=== PATIENT | female | born 1995 | race Caucasian/White ===

== ENCOUNTER 2018-08-20 17:05 | Emergency (ER) | payer OTHER ==
[2018-08-20 18:04] LABS: #Basophils 0.1 thou/uL (0.0-0.2); #Eosinphils 0.1 thou/uL (0.0-0.7); #Lymphocytes 1.5 thou/uL (1.20-3.40); #Monocytes 0.5 thou/uL (0.11-0.59); #Neutrophils 7.6 thou/uL (1.40-6.50); %Basophils 0.6 % (0.0-1.0); %Eosinophils 0.9 % (0.0-10.0); %Monocytes 5.2 % (0.0-10.0); %Neutrophils 78.2 % (42.0-75.0); Hemoglobin 15.1 g/dL (12.0-16.0); Mean Corpuscular HGB CONC 34.5 g/dL (32.0-36.0); Mean Corpuscular Hemoglobin 29.9 pg (27.0-31.0); Mean Corpuscular Volume 86.7 fL (78.0-98.0); Mean Platelet Volume 8.9 fL (7.4-10.4); Platelet Count 212 thou/uL (130-400); RBC Distribution Width 11.4 % (11.5-14.5); Red Blood Cell (RBC) Count 5.05 mill/uL (4.20-5.40); White Blood Cell (WBC) Count 9.7 thou/uL (4.8-10.8)
[2018-08-20 18:28] LABS: ALT (SGPT) 25 U/L (8-55); AST (SGOT) 15 U/L (5-34); Albumin 4.1 g/dL (3.5-5.0); Alkaline Phosphatase 62 U/L (40-150); Anion Gap 16 mmol/L (10-20); BUN (Urea Nitrogen) 9 mg/dL (7.0-18.7); Bilirubin, Total 0.8 mg/dL (0.2-1.2); Calc. Creatinine Clearance 0 mL/min (70-130); Calcium 9.5 mg/dL (7.8-10.44); Carbon Dioxide 19 mmol/L (22-29); Chloride 104 mmol/L (98-107); Estimated GFR-MDRD Greater than 90; Globulin 2.9 g/dL (2.4-3.5); Glucose 81 mg/dL (70-105); Potassium 3.8 mmol/L (3.5-5.1); Sodium 135 mmol/L (136-145)
[2018-08-20] MEDS ORDERED: diphenhydrAMINE 50 MG/ML VIAL ONE (18:31)
[2018-08-20] MEDS ORDERED: Metoclopramide HCl 10 MG/2 ML VIAL ONE (18:31)
== END 2018-08-20 20:15 | disposition home or self-care (01) ==
LOC: ERS 17:05
DX: O21.0 Mild hyperemesis gravidarum (principal); Z3A.09 9 weeks gestation of pregnancy
CPT/HCPCS: 80053; 84702; 85025; 96361; 96374; 96375; J1200; J2765

== ENCOUNTER 2018-08-22 16:07 | Inpatient (IN) | payer OTHER ==
[2018-08-22] MEDS ORDERED: Promethazine HCl 25 MG/ML VIAL IM PRN (18:58)
[2018-08-22] MEDS ORDERED: Multivitamins, Adult 10 ML, Thiamine HCl 100 MG, Folic Acid 1 MG in Dextrose 5 %-0.45 %... IV SCH (20:00)
[2018-08-22] MEDS: Ondansetron PF 4 MG/2 ML Vial IVP SCH (20:19)
[2018-08-22] MEDS: Famotidine/PF 20 mg/2ml Vial SLOW IVP SCH (20:19)
[2018-08-22] MEDS: Metoclopramide HCl 10 MG/2 ML VIAL IVP SCH (20:19)
[2018-08-22 20:31] LABS: ALT (SGPT) 28 U/L (8-55); AST (SGOT) 24 U/L (5-34); Albumin 4.6 g/dL (3.5-5.0); Alkaline Phosphatase 71 U/L (40-150); Anion Gap 18 mmol/L (10-20); BUN (Urea Nitrogen) 11 mg/dL (7.0-18.7); Bilirubin, Total 1.5 mg/dL (0.2-1.2); Calc. Creatinine Clearance 176 mL/min (70-130); Calcium 9.8 mg/dL (7.8-10.44); Carbon Dioxide 18 mmol/L (22-29); Chloride 102 mmol/L (98-107); Estimated GFR-MDRD Greater than 90; Globulin 3.3 g/dL (2.4-3.5); Glucose 63 mg/dL (70-105); Lipase 22 U/L (8-78); Potassium 3.8 mmol/L (3.5-5.1); Protein, Total 7.9 g/dL (6.0-8.3); Sodium 134 mmol/L (136-145)
[2018-08-22 20:48] LABS: Free T4 (Free Thyroxine) 1.17 ng/dL (0.70-1.48); Thyroid Stimulating Hormone 0.2245 uIU/mL (0.35-4.94)
[2018-08-22 22:52] LABS: Bilirubin Small (Negative); Blood, Urine Negative (Negative); Clarity CLOUDY (Clear); Glucose, Urine (Dipstick) Negative (Negative); Leukocyte Negative (Negative); Nitrite Negative (Negative); Protein, Urine (Dipstick) Trace mg/dL (Neg-Trace); Specific Gravity, Urine 1.031 (1.002-1.036); pH, Urine 5.5 (5.0-9.0)
[2018-08-22 22:54] LABS: Bacteria/HPF 1+ HPF (None Seen); Hyaline Casts/LPF 4-6 HYALINE CAST LPF (0-3 Hyaline); Pathc Cast-AUWi Flag 1.22 (0-2.49); RBC/HPF 0-3 HPF (0-3); WBC/HPF 0-3 HPF (0-3)
--- NOTE | 2018-08-22 23:27 | PDOC.FPRHP ---
- History of Present Illness Chief Complaint: Nausea and vomiting History of Present Illness: Patient was seen in ER at the instruction of her primary provider for Nausea and vomiting on Saturday. She was given fluids, benadryl, reglan, and sent home in good condition. She reports feeling good when she left, but by the time she made it to [place] at [employer] she started vomiting again. She worked hourly shift then then when she woke up this afternoon at 1400, she vomited 7 times prior to 1600, at which time she called the triage nurse at [facility]. She is unable to hold down even sips of water. Her vomit is yellow and smith her throat with acid. She had not urinated all day. She back is hurting and she also has a headache. - Allergies/Adverse Reactions Allergies Allergy/AdvReac Type Severity Reaction Status Date / Time amitriptyline Allergy Verified 08/22/18 18:53 - History PSHx: lives with , works hourly shift at [employer] Social: denies - Review of Systems Gastrointestinal: reports: nausea, vomiting Musculoskeletal: reports: pain (in the back) Neurological: reports: other (headache) - Vital signs BP: [134/93] HR: [87] RR: [18] Tmax: [97.9] Pox: [99]% on [RA] Wt: [198] - Physical Exam Constitutional: NAD, awake, alert and oriented HEENT: normocephalic and atraumatic Heart: RRR, normal S1/S2, pulses present Lungs: CTAB, no respiratory distress Abdomen: soft, bowel sounds present, no masses/distention, other (Neg CVA tenderness) Musculoskeletal: normal tone, ROM grossly normal Neurological: no focal deficit, CN II-XII intact, normal sensation Skin: no rash/lesions Psychiatric: normal mood and affect FMR H&P: Results - Labs Result Diagrams: 08/22/18 20:02 Lab results: Sodium 134 mmol/L (136-145) L 08/22/18 20:02 Potassium 3.8 mmol/L (3.5-5.1) 08/22/18 20:02 Chloride 102 mmol/L (98-107) 08/22/18 20:02 Carbon Dioxide 18 mmol/L (22-29) L 08/22/18 20:02 BUN 11 mg/dL (7.0-18.7) 08/22/18 20:02 Creatinine 0.70 mg/dL (0.6-1.1) 08/22/18 20:02 Glucose 63 mg/dL (70-105) L 08/22/18 20:02 Calcium 9.8 mg/dL (7.8-10.44) 08/22/18 20:02 Total Bilirubin 1.5 mg/dL (0.2-1.2) H 08/22/18 20:02 AST 24 U/L (5-34) 08/22/18 20:02 ALT 28 U/L (8-55) 08/22/18 20:02 Alkaline Phosphatase 71 U/L (40-150) 08/22/18 20:02 Serum Total Protein 7.9 g/dL (6.0-8.3) 08/22/18 20:02 Albumin 4.6 g/dL (3.5-5.0) 08/22/18 20:02 Lipase 22 U/L (8-78) 08/22/18 20:02 Urine Ketones > or equal to 80 mg/dL (Negative) H 08/22/18 22:20 Urine Blood Negative (Negative) 08/22/18 22:20 Urine Nitrite Negative (Negative) 08/22/18 22:20 Ur Leukocyte Esterase Negative (Negative) 08/22/18 22:20 Urine RBC 0-3 HPF (0-3) 08/22/18 22:20 Urine WBC 0-3 HPF (0-3) 08/22/18 22:20 Ur Squamous Epith Cells 11-20 HPF (0-3) H 08/22/18 22:20 Urine Bacteria 1+ HPF (None Seen) H 08/22/18 22:20 FMR H&P: A/P - Problem List (1) Hyperemesis gravidarum Current Visit: Yes Status: Acute Code(s): O21.0 - MILD HYPEREMESIS GRAVIDARUM (2) Obesity Current Visit: Yes Status: Acute Code(s): E66.9 - OBESITY, UNSPECIFIED (3) Dehydration Current Visit: Yes Status: Acute Code(s): E86.0 - DEHYDRATION (4) Ketonuria Current Visit: Yes Status: Acute Code(s): R82.4 - ACETONURIA (5) UTI (urinary tract infection) Current Visit: Yes Status: Acute (6) 10 weeks gestation of Current Visit: Yes Status: Acute Code(s): Z3A.10 - 10 WEEKS GESTATION OF - Plan Direct admission Under supervising physician Dr. Breana Rodriguez, who I have consulted with on the case NPO until no longer vomiting then will start advancing diet and do a PO challenge prior to discharge IV hydration with banana bag, then d5LR until ketone clear from UA IV / IM antiemetics Tylenol for CHEEK or back ache. Start Antibiotic for UTI, UCX sent for sensitivity. Lab to r/o pancreatitis, hyperthyroidism, and metabolic panel to ensure electrolytes are within normal limits FMR H&P: Upper Level - Plan Date/Time: 08/22/18 7503 I, [], have evaluated this patient and agree with findings/plan as outlined by intern product marketing manager resident. Pertinent changes/additions are listed here.
[2018-08-22] MEDS: Dextrose 5%-Lactated Ringers 1,000 ML IV SCH (23:48)
[2018-08-23] MEDS: Dextrose 5%-Lactated Ringers 1,000 ML IV SCH ×6 (04:08→17:18)
[2018-08-23] MEDS: Ondansetron PF 4 MG/2 ML Vial IVP SCH ×2 (04:09→12:12)
[2018-08-23 04:16] VITALS: BMI 32.9
[2018-08-23] MEDS: Acetaminophen 325 MG TAB PO PRN ×2 (08:14→15:05)
[2018-08-23] MEDS: Metoclopramide HCl 10 MG/2 ML VIAL IVP SCH (08:14)
[2018-08-23] MEDS: Nitrofurantoin Monohyd/M-Cryst 100 MG CAP PO SCH ×2 (08:14→21:39)
[2018-08-23] MEDS: Famotidine/PF 20 mg/2ml Vial SLOW IVP SCH ×2 (08:14→18:09)
[2018-08-23 14:17] LABS: Bilirubin Negative (Negative); Blood, Urine Negative (Negative); Clarity CLEAR (Clear); Glucose, Urine (Dipstick) Negative (Negative); Leukocyte Negative (Negative); Nitrite Negative (Negative); Protein, Urine (Dipstick) Negative (Neg-Trace); Specific Gravity, Urine 1.013 (1.002-1.036)
--- NOTE | 2018-08-23 21:39 | PDOC.PP ---
Post Progress Note Subjective: Patient is feeling better. has not vomited since she has had IV medications. She was able to eat some potato soup and juice. PO intake tolerated: yes Flatus: yes Ambulation: yes Vital Signs (12 hours) Temp Pulse Resp BP Pulse Ox 08/23/18 20:00 98.5 F 80 20 109/66 99 08/23/18 14:55 98.4 F 86 20 97/53 L Weight Admit Weight 198 lb Weight 198 lb - Physical Examination General: NAD Cardiovascular: no m/r/g, RRR Respiratory: clear to auscultation bilaterally, non-labored breathing Abdominal: + bowel sounds Extremities: negative homans (B) Skin: no rash Neurological: no gross focal deficits Psychiatric: A&Ox3, normal affect Result Diagrams: 08/22/18 20:02 (1) Hyperemesis gravidarum Code(s): O21.0 - MILD HYPEREMESIS GRAVIDARUM Status: Acute (2) Obesity Code(s): E66.9 - OBESITY, UNSPECIFIED Status: Acute (3) Dehydration Code(s): E86.0 - DEHYDRATION Status: Acute (4) Ketonuria Code(s): R82.4 - ACETONURIA Status: Acute (5) UTI (urinary tract infection) Status: Acute (6) 10 weeks gestation of Code(s): Z3A.10 - 10 WEEKS GESTATION OF Status: Acute - Assessment/Plan A: at 10wks gestation with hyperemisis and improved status. Ketones in urine have resolved P: continue IV hydration at 125ml per hour. Transition to PO antiemetic. Advance diet as tolerated. Evaluate for discharge tomorrow
[2018-08-23] MEDS ORDERED: Metoclopramide HCl 10 MG TAB PO SCH (22:00)
[2018-08-24] MEDS: Metoclopramide HCl 10 MG/2 ML VIAL IVP SCH ×2 (00:51→20:30)
[2018-08-24] MEDS: Dextrose 5%-Lactated Ringers 1,000 ML IV SCH ×3 (01:16→15:44)
[2018-08-24] MEDS: Nitrofurantoin Monohyd/M-Cryst 100 MG CAP PO SCH ×2 (08:21→20:29)
[2018-08-24] MEDS: Metoclopramide HCl 10 MG TAB PO SCH ×2 (08:21→11:36)
[2018-08-24] MEDS: Ondansetron ODT 4 MG TAB PO PRN ×2 (08:21→11:36)
[2018-08-24] MEDS ORDERED: Famotidine 20 MG TAB PO SCH (09:00)
--- NOTE | 2018-08-24 10:50 | ULT ---
PELVIC ULTRASOUND WITH SCOTT SCALE AND COLOR FLOW AND SPECTRAL DOPPLER: HISTORY: Evaluation of . FINDINGS: A single live intrauterine gestation is seen with measurements corresponding to an estimated gestatio nal age of 9 weeks 6 days and KEYUR at 03/23/2019. The crown-rump length measures 3.38 cm, gestational sac diameter 4.0 cm, and yolk diameter is 0.33 cm. The heart rate measures 171 b.p.m. No figueroa bchorionic hemorrhage is seen. The right ovary is visualized and normal and demonstrates flow. The left ovary is not visualized. N o free fluid is seen in the cul-de-sac. IMPRESSION: Single live intrauterine of 9 weeks 6 days estimated gestational age and estimated date of delivery at 03/23/2019. POS: JAJA
[2018-08-24] MEDS: Ondansetron PF 4 MG/2 ML Vial IVP SCH ×2 (15:39→22:34)
[2018-08-24 15:57] LABS: ALT (SGPT) 22 U/L (8-55); AST (SGOT) 13 U/L (5-34); Albumin 3.5 g/dL (3.5-5.0); Alkaline Phosphatase 57 U/L (40-150); Anion Gap 11 mmol/L (10-20); BUN (Urea Nitrogen) Less than 4 mg/dL (7.0-18.7); Bilirubin, Total 0.4 mg/dL (0.2-1.2); Calc. Creatinine Clearance 202 mL/min (70-130); Carbon Dioxide 22 mmol/L (22-29); Chloride 107 mmol/L (98-107); Estimated GFR-MDRD Greater than 90; Globulin 2.5 g/dL (2.4-3.5); Glucose 81 mg/dL (70-105); Potassium 3.4 mmol/L (3.5-5.1); Sodium 137 mmol/L (136-145)
[2018-08-24] MEDS: Famotidine/PF 20 mg/2ml Vial SLOW IVP SCH (20:23)
[2018-08-25] MEDS: Dextrose 5%-Lactated Ringers 1,000 ML IV SCH (00:28)
[2018-08-25] MEDS: Ondansetron PF 4 MG/2 ML Vial IVP SCH ×2 (06:02→13:47)
--- NOTE | 2018-08-25 06:45 | PDOC.EVN ---
Event Note - Event Note Event Note: S: Rene has not vomited since starting back on clear fluids and IV antiemetics. She was able to sleep. she is getting up to use the restroom every five minutes as well as able to walk around the hallway a few times per day. She denies any pain in the back of her calf, SOB. Is still having occasional bouts of nausea. O: Selected Entries 08/25/18 08:07 Temperature 98.2 F Pulse Rate 77 Blood Pressure 109/61 [Semi-Fowlers] Respiratory 20 Rate O2 Sat by Pulse 99 Oximetry Laboratory Tests 08/24/18 14:58 Sodium 137 Potassium 3.4 L Chloride 107 Carbon Dioxide 22 Anion Gap 11 BUN Less than 4 L Creatinine 0.61 Estimated GFR (MDRD) Greater than 90 Glucose 81 Calcium 9.0 Total Bilirubin 0.4 AST 13 ALT 22 Alkaline Phosphatase 57 Serum Total Protein 6.0 Albumin 3.5 Globulin 2.5 Albumin/Globulin Ratio 1.4 constitutional: sleeping Lungs: non labored breathing ABD: soft, non distended A: at 10weeks gestation with hyperemesisi P: I counsulted with with Dr. Paul and discussed using [facility] protocol for hyperemesis. IV fluids changed to NS with potassium 20meq. Start 10mg predinsone QID. clear fluid diet and Will advance diet as tolerated
[2018-08-25] MEDS: Famotidine/PF 20 mg/2ml Vial SLOW IVP SCH (08:29)
[2018-08-25] MEDS: Metoclopramide HCl 10 MG/2 ML VIAL IVP SCH (08:29)
[2018-08-25] MEDS: 1/2 NS w/KCL 20 mEq 1,000 ML IV SCH ×2 (08:59→20:07)
[2018-08-25] MEDS: Nitrofurantoin Monohyd/M-Cryst 100 MG CAP PO SCH ×2 (08:59→21:10)
[2018-08-25] MEDS ORDERED: predniSONE 20 MG TAB PO SCH (09:00)
[2018-08-25] MEDS ORDERED: prednisoLONE 10 MG ODT TAB PO SCH (09:00)
[2018-08-25] MEDS: predniSONE 20 MG TAB PO SCH ×3 (12:25→21:10)
[2018-08-25] MEDS ORDERED: Ondansetron ORAL SOLN. 4 MG/5 ML UDCUP PO PRN ×2 (14:27→19:05)
[2018-08-25] MEDS ORDERED: SODIUM CHLORIDE IV SCH (14:30)
[2018-08-25] MEDS ORDERED: MULTIVITAMINS IV SCH (14:30)
[2018-08-25] MEDS ORDERED: Multivitamins, Adult 10 ML in Sodium Chloride 0.9% 500 ML IV SCH (14:45)
[2018-08-25 15:10] LABS: ALT (SGPT) 22 U/L (8-55); AST (SGOT) 15 U/L (5-34); Albumin 3.6 g/dL (3.5-5.0); Alkaline Phosphatase 60 U/L (40-150); Anion Gap 10 mmol/L (10-20); BUN (Urea Nitrogen) Less than 4 mg/dL (7.0-18.7); Bilirubin, Total 0.6 mg/dL (0.2-1.2); Calc. Creatinine Clearance 192 mL/min (70-130); Calcium 9.1 mg/dL (7.8-10.44); Carbon Dioxide 22 mmol/L (22-29); Chloride 107 mmol/L (98-107); Estimated GFR-MDRD Greater than 90; Globulin 2.3 g/dL (2.4-3.5); Glucose 93 mg/dL (70-105); Potassium 3.7 mmol/L (3.5-5.1); Protein, Total 5.9 g/dL (6.0-8.3); Sodium 135 mmol/L (136-145)
[2018-08-25] MEDS ORDERED: Metoclopramide 10 MG/10 ML UDCUP PO SCH (17:00)
[2018-08-25] MEDS: Metoclopramide HCl 10 MG TAB PO SCH ×2 (17:21→21:10)
[2018-08-25] MEDS ORDERED: Enoxaparin Sodium 40 MG/0.4 ML SYRINGE SC SCH (21:00)
[2018-08-25] MEDS: Famotidine 20 MG TAB PO SCH (21:10)
[2018-08-26] MEDS: Famotidine 20 MG TAB PO SCH (07:47)
[2018-08-26] MEDS: Metoclopramide HCl 10 MG TAB PO SCH ×2 (07:47→11:28)
[2018-08-26] MEDS: predniSONE 20 MG TAB PO SCH (08:01)
[2018-08-26] MEDS ORDERED: predniSONE 5 MG TAB PO SCH (09:00)
[2018-08-26] MEDS: Nitrofurantoin Monohyd/M-Cryst 100 MG CAP PO SCH (09:22)
[2018-08-26 11:09] VITALS: BP 114/61; TEMP 98.5
== END 2018-08-26 15:25 | disposition home or self-care (01) | DRG 832 ==
LOC: 3SW 17:50
PROVIDERS: ADMIT Student in an Organized Health Care Education/Training Program; ATTEND Student in an Organized Health Care Education/Training Program
DX: O21.1 Hyperemesis gravidarum with metabolic disturbance (principal); O23.41 Unspecified infection of urinary tract in pregnancy, first trimester; E66.9 Obesity, unspecified; O99.211 Obesity complicating pregnancy, first trimester; Z3A.10 10 weeks gestation of pregnancy
CPT/HCPCS: 36415; 76856; 80053; 81001; 81003; 82150; 83690; 84439; 84443; 84702; 85025; 87086; 93976; 96361; 96374; 96375; J1200; J1650; J2405; J2550; J2765; J3411; J3480; J7042; J7050; J7510; J7512; J8597; Q0162; S0028

== ENCOUNTER 2018-09-27 21:32 | Emergency (ER) | payer OTHER ==
[2018-09-27 22:20] LABS: #Basophils 0.1 thou/uL (0.0-0.2); #Eosinphils 0.2 thou/uL (0.0-0.7); #Lymphocytes 2.5 thou/uL (1.20-3.40); #Monocytes 0.9 thou/uL (0.11-0.59); #Neutrophils 8.6 thou/uL (1.40-6.50); %Basophils 0.5 % (0.0-1.0); %Lymphocytes 20.5 % (21.0-51.0); %Monocytes 7.1 % (0.0-10.0); Hemoglobin 13.7 g/dL (12.0-16.0); Mean Corpuscular HGB CONC 33.5 g/dL (32.0-36.0); Mean Corpuscular Volume 86.4 fL (78.0-98.0); Mean Platelet Volume 8.7 fL (7.4-10.4); Platelet Count 269 thou/uL (130-400); RBC Distribution Width 11.7 % (11.5-14.5); Red Blood Cell (RBC) Count 4.74 mill/uL (4.20-5.40); White Blood Cell (WBC) Count 12.2 thou/uL (4.8-10.8)
[2018-09-27 22:29] LABS: Bacteria/HPF None Seen HPF (None Seen); Bilirubin 1+ (Negative); Blood, Urine Negative (Negative); Clarity Clear (Clear); Glucose, Urine (Dipstick) Normal (Negative); Leukocyte Negative Leu/uL (Negative); Nitrite Negative (Negative); Protein, Urine (Dipstick) 50 mg/dL (Neg-Trace); WBC/HPF 0-3 HPF (0-3)
[2018-09-27 22:30] LABS: Pregnancy Test - Urine (BHCG) POSITIVE (Negative); Pregu Control Background? CLEAR/WHITE (CLR/WHITE); Pregu Control Bar Appear? YES (CONTROL BAR); Specific Gravity 1.027 (1.002-1.036)
[2018-09-27] MEDS ORDERED: diphenhydrAMINE 50 MG/ML VIAL ONE (22:35)
[2018-09-27] MEDS ORDERED: Metoclopramide HCl 10 MG/2 ML VIAL ONE (22:35)
[2018-09-27 23:36] LABS: Albumin 3.3 g/dL (3.5-5.0)
[2018-09-27 23:37] LABS: Chloride 105 mmol/L (98-107); Potassium 3.9 mmol/L (3.5-5.1); Sodium 133 mmol/L (136-145)
[2018-09-27 23:39] LABS: Glucose 60 mg/dL (70-105); Protein, Total 6.3 g/dL (6.0-8.3)
[2018-09-27 23:40] LABS: Anion Gap 18 mmol/L (10-20); Carbon Dioxide 14 mmol/L (22-29)
[2018-09-27 23:41] LABS: Alkaline Phosphatase 87 U/L (40-150)
[2018-09-27 23:42] LABS: Calc. Creatinine Clearance 0 mL/min (70-130); Estimated GFR-MDRD Greater than 90
[2018-09-27 23:43] LABS: BUN (Urea Nitrogen) 6 mg/dL (7.0-18.7)
[2018-09-27 23:44] LABS: ALT (SGPT) 29 U/L (8-55); AST (SGOT) 24 U/L (5-34)
[2018-09-27] MEDS ORDERED: Dextrose 5% in Water 1,000 ML IV SCH (23:45)
== END 2018-09-28 01:31 | disposition home or self-care (01) ==
LOC: ERS 21:32
DX: O21.9 Vomiting of pregnancy, unspecified (principal); O99.282 Endocrine, nutritional and metabolic diseases complicating pregnancy, second trimester; E87.6 Hypokalemia; O99.512 Diseases of the respiratory system complicating pregnancy, second trimester; J45.909 Unspecified asthma, uncomplicated; O99.342 Other mental disorders complicating pregnancy, second trimester; F41.9 Anxiety disorder, unspecified; F32.9 Major depressive disorder, single episode, unspecified; Z79.899 Other long term (current) drug therapy; Z3A.15 15 weeks gestation of pregnancy
CPT/HCPCS: 80053; 81003; 81015; 81025; 84702; 85025; 87086; 96361; 96365; 96366; 96375; J1200; J2765

== ENCOUNTER 2018-10-03 04:26 | Emergency (ER) | payer OTHER ==
[2018-10-03] MEDS ORDERED: Metoclopramide HCl 10 MG/2 ML VIAL ONE (05:30)
[2018-10-03] MEDS ORDERED: Famotidine/PF 20 mg/2ml Vial ONE (05:30)
[2018-10-03 05:42] LABS: #Eosinphils 0.1 thou/uL (0.0-0.7); #Monocytes 0.6 thou/uL (0.11-0.59); #Neutrophils 8.1 thou/uL (1.40-6.50); %Basophils 0.4 % (0.0-1.0); %Eosinophils 1.1 % (0.0-10.0); %Lymphocytes 18.4 % (21.0-51.0); %Monocytes 5.4 % (0.0-10.0); %Neutrophils 74.7 % (42.0-75.0); Hemoglobin 13.9 g/dL (12.0-16.0); Mean Corpuscular HGB CONC 35.1 g/dL (32.0-36.0); Mean Corpuscular Volume 85.3 fL (78.0-98.0); Mean Platelet Volume 9.4 fL (7.4-10.4); Platelet Count 253 thou/uL (130-400); RBC Distribution Width 11.7 % (11.5-14.5); Red Blood Cell (RBC) Count 4.64 mill/uL (4.20-5.40); White Blood Cell (WBC) Count 10.8 thou/uL (4.8-10.8)
[2018-10-03 06:05] LABS: ALT (SGPT) 37 U/L (8-55); AST (SGOT) 30 U/L (5-34); Albumin 3.9 g/dL (3.5-5.0); Alkaline Phosphatase 96 U/L (40-150); Anion Gap 17 mmol/L (10-20); BUN (Urea Nitrogen) 8 mg/dL (7.0-18.7); Bilirubin, Total 1.3 mg/dL (0.2-1.2); Calc. Creatinine Clearance 0 mL/min (70-130); Calcium 9.8 mg/dL (7.8-10.44); Carbon Dioxide 19 mmol/L (22-29); Chloride 102 mmol/L (98-107); Estimated GFR-MDRD Greater than 90; Globulin 3.6 g/dL (2.4-3.5); Glucose 72 mg/dL (70-105); Lipase 26 U/L (8-78); Protein, Total 7.5 g/dL (6.0-8.3); Sodium 134 mmol/L (136-145)
[2018-10-03 07:15] LABS: Bilirubin 1+ (Negative); Blood, Urine Negative (Negative); Clarity Turbid (Clear); Glucose, Urine (Dipstick) Normal (Negative); Leukocyte Negative Leu/uL (Negative); Mucous/LPF 1+ LPF (<2+); Nitrite Negative (Negative); Protein, Urine (Dipstick) 200 mg/dL (Neg-Trace); Transitional Epithelial 0-3 HPF (None Seen); Urobilinogen Greater than 12 mg/dL (Less than 2)
[2018-10-03 07:26] LABS: Bacteria/HPF 2+ HPF (None Seen)
[2018-10-03] MEDS ORDERED: Pantoprazole 40 MG VIAL ONE (08:35)
== END 2018-10-03 09:00 | disposition home or self-care (01) ==
LOC: ERS 04:26
DX: O21.0 Mild hyperemesis gravidarum (principal); O99.512 Diseases of the respiratory system complicating pregnancy, second trimester; J45.909 Unspecified asthma, uncomplicated; O99.342 Other mental disorders complicating pregnancy, second trimester; F41.9 Anxiety disorder, unspecified; F32.9 Major depressive disorder, single episode, unspecified; Z3A.16 16 weeks gestation of pregnancy; Z79.899 Other long term (current) drug therapy
CPT/HCPCS: 36416; 80053; 81003; 81015; 83690; 85025; 96365; 96375; C9113; J2765; S0028

== ENCOUNTER 2019-02-06 12:14 | Day surgery (SDC) | payer OTHER ==
[2019-02-06 12:40] VITALS: BMI 33.3
[2019-02-06] MEDS ORDERED: FLU VACC QS2019-20(6MOS UP)/PF 60 MCG/0.5 ML SYRINGE IM ONE (12:45)
[2019-02-06] MEDS ORDERED: hydrALAZINE 20 MG/ML VIAL SLOW IVP PRN (14:09)
[2019-02-06 14:44] LABS: Bacteria/HPF None Seen HPF (None Seen); Bilirubin Negative (Negative); Blood, Urine Negative (Negative); Clarity Clear (Clear); Glucose, Urine (Dipstick) Normal (Negative); Leukocyte Negative Leu/uL (Negative); Nitrite Negative (Negative); Protein, Urine (Dipstick) 30 mg/dL (Neg-Trace); Urobilinogen Normal mg/dL (Less than 2); WBC/HPF 0-3 HPF (0-3)
--- NOTE | 2019-02-09 08:31 | PRG ---
DATE OF SERVICE: 02/06/2019 PRIMARY OB: . Meagan Aviles, certified nurse-piece hand. CHIEF COMPLAINT: Abdominal pain. HISTORY OF PRESENT ILLNESS: The patient is a 23-year-old G1, P0 female with an intrauterine at 34 weeks, presenting to Labor and Delivery after having uterine contractions that she reported this morning as being severe and 10 minutes apart or less. The patient at the time of evaluation reports that her contractions have diminished in intensity and frequency. She denies intercourse in the last couple of days. She denies any urinary urgency or frequency. She denies vaginal bleeding or leakage of fluid. She does report chronic prednisone use for hyperemesis gravidarum. She denies any recent illness with fever, cough, headache, chest pain, or shortness of breath. Nausea and vomiting have been under control with the prednisone. Denies diarrhea or constipation, any new rashes, hip problems, knee problems, muscle weakness, vaginal bleeding or leakage of fluid, urinary urgency or frequency. PAST MEDICAL HISTORY: She has Chiari malformation and hyperemesis gravidarum. She has asthma and also history of migraines, headaches, and seizures. Also, anxiety and depression. PAST SURGICAL HISTORY: She has had an appendectomy and mouth surgery. ALLERGIES: ALLERGIC TO PEANUTS AND AMITRIPTYLINE. SOCIAL HISTORY: Denies drug, alcohol, or tobacco use. REVIEW OF SYSTEMS: Per HPI. PHYSICAL EXAMINATION: VITAL SIGNS: Blood pressure is 117/70, heart rate of 116, respiratory rate of 14, and temperature 97.2. GENERAL: She appears to be in no acute distress. She is alert, oriented, cooperative, and pleasant to interact with. HEENT: Head is normocephalic and atraumatic. LUNGS: Clear to auscultation bilaterally. HEART: Regular rate and rhythm. ABDOMEN: Gravid and soft. EXTREMITIES: Nontender and nonedematous. PELVIC: Cervical exam is closed, thick, and high. She had a VPIII collected. DIAGNOSTIC STUDIES: heart tracing shows a fetus with a baseline in the 130s with moderate long-term variability, positive 15 x 15 accelerations. Tocometer shows some irritability with an irregular contraction pattern. They were from 5 to 10 minutes apart, though not all felt. VPIII and UA are pending. ASSESSMENT AND PLAN: The patient is a 23-year-old female with an intrauterine at 34 weeks' gestation, presenting with uterine contractions that has spontaneously been resolving. We have a VPIII and a UA pending to see if she has any infection that may be the source of her contractions. The patient has had no other evidence of labor. Fetus has a category 1 tracing and reactive NST. The patient is being discharged home given the spontaneous resolution of symptoms. She will be calling in a couple of hours for those test results. She has an appointment next week with Ms. Meagan Aviles, which we have encouraged that she keep. She has been given labor precautions. Job ID: [id number]
== END 2019-02-06 14:19 | disposition home or self-care (01) ==
LOC: L&D/OP 12:14
PROVIDERS: ATTEND Obstetrics & Gynecology
DX: O47.9 False labor, unspecified (principal); Z79.52 Long term (current) use of systemic steroids; Z79.899 Other long term (current) drug therapy; Z88.8 Allergy status to other drugs, medicaments and biological substances; Z91.010 Allergy to peanuts; Z3A.00 Weeks of gestation of pregnancy not specified
CPT/HCPCS: 81001; 87480; 87510; 87660; 99283

== ENCOUNTER 2019-02-27 01:35 | Inpatient (IN) | payer OTHER ==
[2019-02-27] MEDS ORDERED: Promethazine HCl 25 MG/ML VIAL IM PRN ×4 (10:26→17:02)
[2019-02-27] MEDS ORDERED: Mineral Oil PER 1 ML TOP PRN (10:26)
[2019-02-27] MEDS ORDERED: hydrALAZINE 20 MG/ML VIAL SLOW IVP PRN ×3 (10:26→17:02)
[2019-02-27] MEDS ORDERED: Ondansetron PF 4 MG/2 ML Vial IVP PRN ×4 (10:26→17:02)
[2019-02-27] MEDS ORDERED: Lactated Ringer's 1,000 ML IV SCH (10:30)
[2019-02-27 10:52] VITALS: BMI 35.7
[2019-02-27] MEDS ORDERED: MORPHINE 5 MG/10 ML PF VIAL ONE (11:58)
[2019-02-27] MEDS ORDERED: Fentanyl 100 MCG/2 ML VIAL ONE (11:58)
[2019-02-27 12:00] LABS: Hemoglobin 14.1 g/dL (12.0-16.0); Mean Corpuscular HGB CONC 33.1 g/dL (32.0-36.0); Mean Corpuscular Hemoglobin 27.6 pg (27.0-31.0); Mean Corpuscular Volume 83.3 fL (78.0-98.0); Mean Platelet Volume 8.9 fL (7.4-10.4); Platelet Count 244 thou/uL (130-400); RBC Distribution Width 12.9 % (11.5-14.5); White Blood Cell (WBC) Count 13.4 thou/uL (4.8-10.8)
[2019-02-27] MEDS ORDERED: Lidocaine 2% 10 ML INJ ONE (12:01)
[2019-02-27] MEDS ORDERED: ePHEDrine/0.9% NaCl/PF SYRINGE 50 mg/10 ml ONE (12:02)
[2019-02-27] MEDS ORDERED: PHENYLEPHRINE-NS 100 MCG/ML 10 ML SYRINGE ONE (12:02)
[2019-02-27] MEDS ORDERED: Ondansetron PF 4 MG/2 ML Vial ONE (12:03)
[2019-02-27] MEDS ORDERED: CEFAZOLIN 2 GM in Premix Bag 1 BAG IVPB SCH (12:30)
[2019-02-27] MEDS ORDERED: Bicitra 30 ML UDCUP PO SCH (12:30)
--- NOTE | 2019-02-27 12:32 | PDOC.LDHP ---
Labor and Delivery H&P HPI: Arrived for EVC/ PCS. Current gestational age (weeks): 37 Due date: 03/20/18 Dating criteria: last menstrual period (verified by first trimester us at 8w4day ) Grav: 1 Para: 0 Current complications: other (Hyperemesis gravidarium) Abnormal US findings: Yes (oligohydramnios 3.5 cm today) Past Medical History: SMA carrier chiari malformation? IBS Current medications: other (prednisone 40mg PO QD) Previous surgical history: appendectomy Allergies/Adverse Reactions: Allergies Allergy/AdvReac Type Severity Reaction Status Date / Time peanut Allergy Verified 02/27/19 10:52 amitriptyline AdvReac Intermediate Verified 02/27/19 10:52 Social history: none - Physical Exam Vital signs reviewed and normal: yes General: resting Lungs: nonlabored breathing Abdomen: gravid FHT: category 1 - Vaginal Exam cm dilated: 0 Effacement: 0% Station: -3 - OB Labs Blood type: B RH: positive Antibody Screen: negative HIV: negative RPR: negative HEPSAg: negative GBS: unknown Urine drug screen: negative Rubella: non-immune - Assessment L&D Assessment: scheduled primary section (ECV is not recommended due to oligohydramnios due to the) - Plan Plan: admit to L&D, to OR for section
[2019-02-27 12:39] LABS: Syphilis Antibody Nonreactive (Nonreactive); Syphilis Antibody Index 0.04 S/CO (<1.00 Non-Reactive)
[2019-02-27 12:39] LABS: HBSAg Index 0.37 S/CO (0-0.99); Hep B Surf Ag Non-Reactive S/CO (NonReactive)
[2019-02-27] MEDS ORDERED: Fentanyl 4 mcg/Bup 0.1% Cadd 100 ML ONE (12:39)
[2019-02-27] MEDS ORDERED: Oxytocin 10 UNITS/ML VIAL ONE ×4 (13:45→13:46)
[2019-02-27] MEDS: Hydrocortisone Sod Succ/PF 100 mg/2 ml Vial IVP SCH ×2 (13:52→21:02)
[2019-02-27] MEDS ORDERED: Hydrocortisone Sod Succ/PF 250 mg/2 ml Vial SLOW IVP SCH (14:00)
[2019-02-27] MEDS ORDERED: Promethazine HCl 25 MG SUPP PR PRN (14:24)
[2019-02-27] MEDS ORDERED: L&D-Morphine 4 MG/ML VIAL SLOW IVP PRN (14:24)
[2019-02-27] MEDS ORDERED: HYDROmorphone 2 MG/ML VIAL SLOW IVP PRN (14:24)
[2019-02-27] MEDS ORDERED: Naloxone HCl 0.4 mg/ml Vial IV PRN (14:24)
[2019-02-27] MEDS ORDERED: Naloxone HCl 0.4 mg/ml Vial IVP PRN ×2 (14:24)
[2019-02-27] MEDS ORDERED: diphenhydrAMINE 50 MG/ML VIAL IVP PRN (14:24)
[2019-02-27] MEDS ORDERED: Ondansetron HCl/PF 4 MG/2 ML Vial IVP PRN (14:24)
[2019-02-27] MEDS ORDERED: Meperidine HCl/PF 25 MG/ML VIAL SLOW IVP PRN (14:24)
[2019-02-27] MEDS ORDERED: Communication Order-Pharmacy FS SCH (14:30)
[2019-02-27] MEDS ORDERED: Ketorolac Tromethamine 30 MG/ML VIAL IVP SCH (14:30)
[2019-02-27] MEDS ORDERED: NS / Oxytocin 40 units/1000ml 1,000 ML ONE (15:27)
[2019-02-27] MEDS ORDERED: Misoprostol 200 MCG TAB PR PRN (17:02)
[2019-02-27] MEDS ORDERED: HYDROcodone/Acetaminophen 5/325 mg Tablet PO PRN ×2 (17:02)
[2019-02-27] MEDS ORDERED: NS / Oxytocin 40 units/1000ml 1,000 ML IV SCH (17:02)
[2019-02-27] MEDS ORDERED: Methylergonovine 0.2 MG/ML VIAL IM PRN (17:02)
[2019-02-27] MEDS ORDERED: Simethicone Chewable 80 MG TAB PO PRN (17:02)
--- NOTE | 2019-02-27 17:06 | PDOC.OPDEL ---
OB Operative/Delivery Note Delivery Dr/Surgeon: Janelle Jacobson DO Assist: Meagan Aviles CNM Pre-Delivery Diagnosis: scheduled section Procedure/Post Delivery Dx: primary low transverse CS Weeks gestation: 37 Anesthesia: epidural - Findings A Sex: female - 1 min: 8 - 5 min: 9 - Additional Findings/Plan Placenta delivered: spontaneous findings: low transverse hysterotomy without extension, normal uterus, normal tubes, normal ovaries, other Estimated blood loss: QBL 496 cc Compilations/Other Findings: Infant in ilan breech presentation Scant clear amniotic fluid Normal appearing placenta Post delivery plan: routine recovery
[2019-02-27] MEDS ORDERED: Sodium Chloride 0.9% 10 ML ONE ×2 (20:32→20:51)
[2019-02-27] MEDS: Ferrous Sulfate 325 MG TAB PO SCH (21:02)
[2019-02-27] MEDS: Docusate Calcium (SURFAK) 240 MG CAP PO SCH (21:03)
[2019-02-27] MEDS: Ketorolac Tromethamine 30 MG/ML VIAL IVP PRN (22:46)
[2019-02-28] MEDS: Lactated Ringer's 1,000 ML IV SCH ×4 (01:54→16:32)
[2019-02-28] MEDS ORDERED: Sodium Chloride 0.9% 10 ML ONE ×3 (02:43→14:25)
[2019-02-28] MEDS ORDERED: HYDROcodone/Acetaminophen 5/325 mg Tablet PO PRN ×2 (03:00)
[2019-02-28] MEDS ORDERED: Sodium Chloride 0.9% 20 ML ONE (05:54)
[2019-02-28] MEDS: Hydrocortisone Sod Succ/PF 100 mg/2 ml Vial IVP SCH ×2 (05:58→14:48)
[2019-02-28] MEDS: Ketorolac Tromethamine 30 MG/ML VIAL IVP PRN ×2 (05:59→12:50)
[2019-02-28 06:09] LABS: #Lymphocytes 1.6 thou/uL (1.20-3.40); #Monocytes 1.1 thou/uL (0.11-0.59); %Basophils 0.1 % (0.0-1.0); %Lymphocytes 9.1 % (21.0-51.0); %Neutrophils 84.7 % (42.0-75.0); Hemoglobin 12.1 g/dL (12.0-16.0); Mean Corpuscular HGB CONC 33.1 g/dL (32.0-36.0); Mean Corpuscular Hemoglobin 27.9 pg (27.0-31.0); Mean Corpuscular Volume 84.2 fL (78.0-98.0); Mean Platelet Volume 8.7 fL (7.4-10.4); Platelet Count 245 thou/uL (130-400); RBC Distribution Width 12.9 % (11.5-14.5); Red Blood Cell (RBC) Count 4.34 mill/uL (4.20-5.40); White Blood Cell (WBC) Count 17.8 thou/uL (4.8-10.8)
[2019-02-28] MEDS ORDERED: Adacel (T-DAP) 0.5 ML SYRINGE IM ONE (09:00)
[2019-02-28] MEDS ORDERED: Terbutaline Sulfate 1 MG/ML VIAL SC SCH (09:00)
[2019-02-28] MEDS: Ferrous Sulfate 325 MG TAB PO SCH (09:25)
[2019-02-28] MEDS: Docusate Calcium (SURFAK) 240 MG CAP PO SCH ×3 (09:37→21:03)
[2019-02-28] MEDS: Prenatal Vitamin 1 TAB PO SCH (09:37)
--- NOTE | 2019-02-28 11:54 | OP ---
DATE OF PROCEDURE: 02/27/2019 PREOPERATIVE DIAGNOSES: 1. A 37-week intrauterine . 2. malpresentation. 3. Oligohydramnios. 4. Severe hyperemesis gravidarum. POSTOPERATIVE DIAGNOSES: 1. A 37-week intrauterine . 2. malpresentation. 3. Oligohydramnios. 4. Severe hyperemesis gravidarum. PROCEDURE PERFORMED: Primary low-transverse delivery via Pfannenstiel skin incision. PAN PULLER: Meagan Aviles CNM COMPLICATIONS: None. QBL: 496. IV FLUIDS: 1500 mL. FINDINGS: Viable female in ilan breech presentation with scant clear amniotic fluid, with Apgars 8 and 9. Normal-appearing placenta. Normal-appearing uterus, fallopian tubes, and ovaries bilaterally. INDICATIONS FOR PROCEDURE: Ms. Candida Oden is a 23-year-old, G1, P0, at 37 weeks by LMP consistent with an 8-week ultrasound, who presented for a possible external cephalic version. The patient was counseled and was noted to have a malpresentation of a breech presentation in clinic and was counseled and elected to have an attempted external cephalic version. Prior to an attempt, an ultrasound was performed noting oligohydramnios with an JERRY of approximately 3.5, and due to this finding, external cephalic version was not recommended, and a primary delivery was recommended. The patient was amenable to the procedure. Antepartum, the patient also had constipation and severe hyperemesis gravidarum requiring long-term steroid. DESCRIPTION OF PROCEDURE: The patient was brought to the operating room. She was placed under an epidural anesthesia to help avoid nausea, and she was then placed in supine position in a leftward tilt. A Bajwa catheter was placed. Her abdomen was prepped and draped in sterile fashion. She was given Ancef for surgical prophylaxis and also given IV steroid dose due to her chronic steroid use. An official time-out was performed. A Pfannenstiel skin incision was made using the scalpel. This was carried down to the underlying fascia. The fascia was incised in the midline using the scalpel and extended bilaterally using Juarez's and blunt dissection. Superior aspect of the fascial incision was grasped using Irineo clamps, tented upward, and dissected free from the underlying rectus abdominis muscle. The same was performed to the inferior aspect of the fascial incision. The peritoneum was then entered in using Metzenbaum scissors. The peritoneal incision was extended using both sharp and blunt dissection. Owen O retractor was then placed into the abdomen. The fetus was palpated, and previously, it was in a transverse back up position with the head on the maternal right, however, seemed to have rotated more towards a ilan breech presentation at the time of delivery before a low-transverse hysterotomy was made. This was extended using blunt dissection. Amniotic membranes were ruptured noting clear amniotic fluid. The infant was delivered in ilan breech presentation without difficulty. The 's cord was clamped and cut. The infant was handed to the waiting neonatology team. Cord sample and cord blood were obtained. The placenta was delivered spontaneously intact. The uterus was cleared of all clot and debris. The hysterotomy was closed in a running locking fashion using 1 Monocryl. The pelvis was irrigated and cleared of all clot and debris. The Owen O retractor was removed from the abdomen. The peritoneum was closed in a running fashion using chromic. The rectus abdominis muscles were evaluated and hemostatic. The fascia was closed using 0 PDS. The subcutaneous layer was copiously irrigated. The subcutaneous layer was hemostatic with the use of Bovie. The subcutaneous layer was closed using 3-0 Vicryl. The skin was closed using 4-0 Monocryl and Dermabond. The patient tolerated the procedure well. There were no complications. All counts were correct x3. Mother and baby will be transferred to routine recovery. Job ID: [id number]
--- NOTE | 2019-02-28 14:12 | PDOC.PP ---
Post Progress Note Post Day #: 1 Subjective: patient is doing well. . she is only a little sore. she is worried about taking norco because last time she took it she slept for 5 days. PO intake tolerated: yes Flatus: yes Ambulation: yes Vital Signs (12 hours) Temp Pulse Resp BP Pulse Ox 02/28/19 12:50 97.9 F 84 15 108/58 L 96 02/28/19 08:35 98.1 F 95 14 114/72 93 L 02/28/19 08:10 93 L 02/28/19 06:14 98.3 F 79 123/64 Weight Weight 215 lb - Physical Examination General: NAD Cardiovascular: RRR Respiratory: non-labored breathing Abdominal: lochia (minimal), appropriately TTP Skin: CS incision dry & intact Neurological: no gross focal deficits Psychiatric: A&Ox3, normal affect Result Diagrams: 02/28/19 05:50 Additional Labs: Post Labs Blood Type B POSITIVE 02/27/19 11:38 Hep Bs Antigen Non-Reactive S/CO (NonReactive) 02/27/19 11:39 (1) Status post primary low transverse section Code(s): Z98.891 - HISTORY OF UTERINE SCAR FROM PREVIOUS SURGERY Status: Acute (2) Breech presentation delivered Code(s): O32.1XX0 - MATERNAL CARE FOR BREECH PRESENTATION, UNSP Status: Acute (3) Hyperemesis gravidarum Code(s): O21.0 - MILD HYPEREMESIS GRAVIDARUM Status: Acute - Assessment/Plan A: s/p LTCS indicated by hyperemesis gravidarum and breech presentation with NML day 1 exam P: discontinue stress dose of steroid at 1400 dose Start medrol dose pack tomorrow for steroid taper Evaluated for discharge home tomorrow.
[2019-02-28] MEDS ORDERED: Acetaminophen/Codeine 30-300mg Tablet PO PRN (14:13)
[2019-02-28] MEDS: Acetaminophen/Codeine 30-300mg Tablet PO PRN (18:26)
[2019-03-01] MEDS: Acetaminophen/Codeine 30-300mg Tablet PO PRN ×2 (02:28→08:17)
[2019-03-01] MEDS: Ferrous Sulfate 325 MG TAB PO SCH ×2 (04:10→08:14)
[2019-03-01] MEDS: Lactated Ringer's 1,000 ML IV SCH ×2 (04:11→09:17)
--- NOTE | 2019-03-01 06:31 | PDOC.PP ---
Post Progress Note Post Day #: 2 Subjective: No more nausea, feels well...ok for DC by her request PO intake tolerated: yes Flatus: yes Ambulation: yes Vital Signs (12 hours) Temp Pulse Resp BP Pulse Ox 03/01/19 03:55 97.9 F 93 18 110/69 98 03/01/19 00:00 98.3 F 83 18 117/73 98 02/28/19 20:30 98.2 F 91 18 114/64 98 Weight Weight 215 lb - Physical Examination General: NAD Respiratory: non-labored breathing Abdominal: + bowel sounds, lochia, no distention Extremities: negative homans (B) Skin: CS incision dry & intact, no rash Neurological: no gross focal deficits Psychiatric: A&Ox3, normal affect Result Diagrams: 02/28/19 05:50 Additional Labs: Post Labs Blood Type B POSITIVE 02/27/19 11:38 Hep Bs Antigen Non-Reactive S/CO (NonReactive) 02/27/19 11:39 (1) Breech presentation delivered Code(s): O32.1XX0 - MATERNAL CARE FOR BREECH PRESENTATION, UNSP Status: Acute (2) Status post primary low transverse section Code(s): Z98.891 - HISTORY OF UTERINE SCAR FROM PREVIOUS SURGERY Status: Acute - Assessment/Plan POD2 doing well...ready for discharge Has meds per Light for home medrol taper for steroid hx keep follow up appoitment
[2019-03-01] MEDS ORDERED: methylPREDNISolone 4 mg Tablet PO SCH ×4 (08:00→21:00)
[2019-03-01 08:10] VITALS: BP 106/61; TEMP 98.1
[2019-03-01] MEDS: Prenatal Vitamin 1 TAB PO SCH (08:18)
[2019-03-01] MEDS: Docusate Calcium (SURFAK) 240 MG CAP PO SCH (08:19)
[2019-03-01] MEDS ORDERED: Ibuprofen 800 MG TAB PO SCH (14:00)
[2019-03-04] MEDS ORDERED: Ibuprofen 800 MG TAB PO SCH (22:00)
== END 2019-03-01 11:40 | disposition home or self-care (01) | DRG 787 ==
LOC: L&D 01:35 → UNDOADMIN 09:56 → L&D-LIB 09:56 → 3SW 17:26
PROVIDERS: ADMIT Obstetrics & Gynecology; ATTEND Obstetrics & Gynecology
PROC: 10D00Z1 Extraction of Products of Conception, Low, Open Approach (ICD-10-PCS; principal; 2019-02-27)
DX: O32.1XX0 Maternal care for breech presentation, not applicable or unspecified (principal); O41.03X0 Oligohydramnios, third trimester, not applicable or unspecified; Z3A.37 37 weeks gestation of pregnancy; Z37.0 Single live birth; Z79.52 Long term (current) use of systemic steroids; O21.1 Hyperemesis gravidarum with metabolic disturbance
CPT/HCPCS: 36415; 51702; 85025; 85027; 86780; 86850; 86900; 86901; 87340; J0690; J1200; J1720; J1885; J2001; J2274; J2405; J2590; J3010; J7509

== ENCOUNTER 2020-08-20 04:03 | Emergency (ER) | payer OTHER ==
[2020-08-20] MEDS ORDERED: Ibuprofen 200 MG TAB ONE (04:59)
== END 2020-08-20 05:24 | disposition home or self-care (01) ==
LOC: ERS 04:03
DX: S30.0XXA Contusion of lower back and pelvis, initial encounter (principal); S70.01XA Contusion of right hip, initial encounter; J45.909 Unspecified asthma, uncomplicated; Z79.899 Other long term (current) drug therapy; Z87.798 Personal history of other (corrected) congenital malformations; W07.XXXA Fall from chair, initial encounter
CPT/HCPCS: 72170

== ENCOUNTER 2020-08-20 20:32 | Emergency (ER) | payer OTHER | END 2020-08-20 22:21 | disposition home or self-care (01) | LOC: ERS 20:32 | DX: S46.912A Strain of unspecified muscle, fascia and tendon at shoulder and upper arm level, left arm, initial encounter (principal); M25.551 Pain in right hip; I10 Essential (primary) hypertension; J45.909 Unspecified asthma, uncomplicated; W19.XXXA Unspecified fall, initial encounter ==

== ENCOUNTER 2020-12-15 15:52 | Outpatient (CLI) | payer OTHER | END 2020-12-15 15:53 | disposition home or self-care (01) | LOC: BICULT 15:52 | PROVIDERS: ATTEND Advanced Practice Midwife | DX: N64.4 Mastodynia (principal) ==

== ENCOUNTER 2021-02-03 19:47 | Observation (INO) | payer OTHER ==
[2021-02-03 20:41] LABS: #Eosinphils 0.1 thou/uL (0.0-0.7); #Lymphocytes 2.3 thou/uL (1.20-3.40); #Monocytes 0.6 thou/uL (0.11-0.59); #Neutrophils 6.3 thou/uL (1.40-6.50); %Basophils 0.4 % (0.0-1.0); %Eosinophils 0.8 % (0.0-10.0); %Lymphocytes 24.9 % (21.0-51.0); %Monocytes 6.1 % (0.0-10.0); %Neutrophils 67.7 % (42.0-75.0); Hemoglobin 14.5 g/dL (12.0-16.0); Mean Corpuscular HGB CONC 34.8 g/dL (32.0-36.0); Mean Corpuscular Volume 88.9 fL (78.0-98.0); Platelet Count 217 thou/uL (130-400); RBC Distribution Width 11.1 % (11.5-14.5); Red Blood Cell (RBC) Count 4.68 mill/uL (4.20-5.40); White Blood Cell (WBC) Count 9.3 thou/uL (4.8-10.8)
[2021-02-03 20:44] LABS: BHCG - Serum Negative (NEGATIVE); Pregs Control Background? CLEAR/WHITE (CLR/WHITE); Pregs Control Bar Appear? YES (CONTROL BAR)
[2021-02-03 21:04] LABS: ALT (SGPT) 14 U/L (8-55); AST (SGOT) 12 U/L (5-34); Alkaline Phosphatase 73 U/L (40-110); Anion Gap 11 mmol/L (10-20); BUN (Urea Nitrogen) 14 mg/dL (7.0-18.7); Bilirubin, Total 0.3 mg/dL (0.2-1.2); Calc. Creatinine Clearance 0 mL/min (70-130); Calcium 9.1 mg/dL (7.8-10.44); Carbon Dioxide 25 mmol/L (22-29); Chloride 105 mmol/L (98-107); Glucose 135 mg/dL (70-105); Magnesium 1.8 mg/dL (1.6-2.6); Potassium 3.7 mmol/L (3.5-5.1); Sodium 137 mmol/L (136-145)
[2021-02-03 21:16] LABS: Thyroid Stimulating Hormone 1.2878 uIU/mL (0.35-4.94)
[2021-02-03] MEDS ORDERED: Metoclopramide HCl 10 MG/2 ML VIAL ONE (22:36)
[2021-02-03] MEDS ORDERED: diphenhydrAMINE 50 MG/ML VIAL ONE (22:36)
[2021-02-04 00:46] VITALS: BMI 40.4
[2021-02-04] MEDS ORDERED: Acetaminophen 325 MG TAB PO PRN (01:21)
[2021-02-04] MEDS ORDERED: Ondansetron PF 4 MG/2 ML Vial IVP PRN (01:21)
[2021-02-04] MEDS ORDERED: Ondansetron ODT 4 MG TAB PO PRN (01:21)
[2021-02-04] MEDS ORDERED: Acetaminophen 650 MG Suppository PR PRN (01:21)
[2021-02-04] MEDS ORDERED: SUMAtriptan Succinate 50 MG TAB PO PRN (03:00)
[2021-02-04] MEDS ORDERED: Escitalopram Oxalate 10 mg Tablet PO SCH ×2 (03:00→21:00)
[2021-02-04 05:50] LABS: #Basophils 0.1 thou/uL (0.0-0.2); #Eosinphils 0.1 thou/uL (0.0-0.7); #Lymphocytes 2.8 thou/uL (1.20-3.40); #Monocytes 0.6 thou/uL (0.11-0.59); #Neutrophils 4.8 thou/uL (1.40-6.50); %Basophils 0.7 % (0.0-1.0); %Eosinophils 1.1 % (0.0-10.0); %Lymphocytes 33.3 % (21.0-51.0); %Monocytes 7.4 % (0.0-10.0); %Neutrophils 57.4 % (42.0-75.0); Mean Corpuscular HGB CONC 34.4 g/dL (32.0-36.0); Mean Corpuscular Hemoglobin 30.5 pg (27.0-31.0); Mean Corpuscular Volume 88.5 fL (78.0-98.0); Mean Platelet Volume 8.1 fL (7.4-10.4); Platelet Count 202 thou/uL (130-400); RBC Distribution Width 11.1 % (11.5-14.5); Red Blood Cell (RBC) Count 4.26 mill/uL (4.20-5.40); White Blood Cell (WBC) Count 8.4 thou/uL (4.8-10.8)
[2021-02-04 06:09] LABS: Anion Gap 9 mmol/L (10-20); BUN (Urea Nitrogen) 12 mg/dL (7.0-18.7); Calc. Creatinine Clearance 218 mL/min (70-130); Calcium 8.4 mg/dL (7.8-10.44); Carbon Dioxide 23 mmol/L (22-29); Chloride 109 mmol/L (98-107); Glucose 88 mg/dL (70-105); Potassium 3.8 mmol/L (3.5-5.1); Sodium 137 mmol/L (136-145)
[2021-02-04] MEDS ORDERED: Meclizine HCl 25 MG TAB PO PRN (07:56)
[2021-02-04] MEDS ORDERED: Sodium Chloride 0.9% 1,000 ML IV SCH (08:00)
[2021-02-04] MEDS ORDERED: Famotidine 20 MG TAB PO SCH (09:00)
[2021-02-04] MEDS ORDERED: Metoclopramide HCl 10 MG/2 ML VIAL IVP SCH (12:15)
[2021-02-04 12:20] VITALS: TEMP 99.4
[2021-02-04] MEDS ORDERED: Dihydroergotamine Mesylate 1 MG/ML AMP SLOW IVP SCH (13:00)
[2021-02-04 13:10] VITALS: BP 117/77
[2021-02-04] MEDS ORDERED: Losartan 25 MG TAB PO SCH (21:00)
[2021-02-04] MEDS ORDERED: Propranolol 10 MG TAB PO SCH (21:00)
== END 2021-02-04 15:15 | disposition home or self-care (01) ==
LOC: ERS 19:47 → NEURO 22:59
PROVIDERS: ADMIT Student in an Organized Health Care Education/Training Program; ATTEND Family Medicine
DX: R42 Dizziness and giddiness (principal); G43.109 Migraine with aura, not intractable, without status migrainosus; G93.5 Compression of brain; E86.0 Dehydration; I95.9 Hypotension, unspecified; I10 Essential (primary) hypertension; J44.9 Chronic obstructive pulmonary disease, unspecified; Z79.899 Other long term (current) drug therapy; Z88.8 Allergy status to other drugs, medicaments and biological substances; Z91.010 Allergy to peanuts
CPT/HCPCS: 36415; 70450; 70551; 80048; 80053; 83735; 84443; 84484; 84703; 85025; 93005; 96375; G0378; J1110; J1200; J2765

== ENCOUNTER 2021-11-28 09:19 | Emergency (ER) | payer BC, OTHER ==
[2021-11-28] MEDS ORDERED: diphenhydrAMINE 25 MG CAP ONE (10:36)
== END 2021-11-28 10:44 | disposition home or self-care (01) ==
LOC: ERS 09:19
DX: T63.461A Toxic effect of venom of wasps, accidental (unintentional), initial encounter (principal); L03.114 Cellulitis of left upper limb; L03.311 Cellulitis of abdominal wall; I10 Essential (primary) hypertension; Z79.899 Other long term (current) drug therapy
CPT/HCPCS: 99283

== ENCOUNTER 2022-04-18 08:25 | Outpatient (CLI) | payer BC | END 2022-04-18 08:26 | disposition home or self-care (01) | LOC: RAD-FRANK 08:25 | PROVIDERS: ATTEND Nurse Practitioner Family | DX: J45.909 Unspecified asthma, uncomplicated (principal); J98.4 Other disorders of lung | CPT/HCPCS: 71046 ==

== ENCOUNTER 2022-04-20 16:04 | Emergency (ER) | payer BC ==
[~2022-04-20 16:04] MED LIST: Iopamidol-370 76% 500 ML 1 ML ONE
[2022-04-20] MEDS ORDERED: Ipratropium/Albuterol 3 ML NEB ONE ×2 (16:13→16:15)
[2022-04-20] MEDS ORDERED: methylPREDNISolone Sod Succ/PF 125 MG/2 ML VIAL ONE (16:13)
[2022-04-20 16:45] LABS: #Eosinphils 0.1 thou/uL (0.0-0.7); #Lymphocytes 2.2 thou/uL (1.20-3.40); #Monocytes 0.6 thou/uL (0.11-0.59); #Neutrophils 4.7 thou/uL (1.40-6.50); %Basophils 0.5 % (0.0-1.0); %Eosinophils 0.9 % (0.0-10.0); %Lymphocytes 28.7 % (21.0-51.0); %Monocytes 7.8 % (0.0-10.0); %Neutrophils 62.1 % (42.0-75.0); Hemoglobin 14.6 g/dL (12.0-16.0); Mean Corpuscular HGB CONC 34.1 g/dL (32.0-36.0); Mean Corpuscular Hemoglobin 29.9 pg (27.0-31.0); Mean Corpuscular Volume 87.5 fl (78.0-98.0); Mean Platelet Volume 8.7 fL (7.4-10.4); Platelet Count 217 10x3/uL (130-400); RBC Distribution Width 11.6 % (11.5-14.5); Red Blood Cell (RBC) Count 4.88 mill/uL (4.20-5.40); White Blood Cell (WBC) Count 7.5 10x3/uL (4.8-10.8)
[2022-04-20 17:06] LABS: ALT (SGPT) 17 U/L (8-55); AST (SGOT) 15 U/L (5-34); Alkaline Phosphatase 68 U/L (40-110); Anion Gap 16 mmol/L (10-20); BUN (Urea Nitrogen) 17 mg/dL (7.0-18.7); Bilirubin, Total 0.4 mg/dL (0.2-1.2); Calc. Creatinine Clearance 0 mL/min (70-130); Calcium 9.1 mg/dL (7.8-10.44); Carbon Dioxide 21 mmol/L (22-29); Chloride 105 mmol/L (98-107); Estimated GFR 119; Globulin 3.3 g/dL (2.4-3.5); Glucose 106 mg/dL (70-105); Magnesium 1.8 mg/dL (1.6-2.6); Potassium 3.7 mmol/L (3.5-5.1); Protein, Total 7.3 g/dL (6.0-8.3); Sodium 138 mmol/L (136-145)
[2022-04-20 18:27] LABS: BHCG - Serum Negative (NEGATIVE); Pregs Control Background? CLEAR/WHITE (CLR/WHITE); Pregs Control Bar Appear? YES (CONTROL BAR)
[2022-04-20 19:45] LABS: Lactic Acid 2.3 mmol/L (0.5-2.2)
[2022-04-20] MEDS ORDERED: Azithromycin 500 MG VIAL ONE (21:04)
[2022-04-20] MEDS ORDERED: Azithromycin 250 MG TAB ONE (21:08)
== END 2022-04-20 21:15 | disposition home or self-care (01) ==
LOC: ERS 16:04
DX: J18.9 Pneumonia, unspecified organism (principal); J45.901 Unspecified asthma with (acute) exacerbation; I10 Essential (primary) hypertension; E78.00 Pure hypercholesterolemia, unspecified; Z79.899 Other long term (current) drug therapy
CPT/HCPCS: 36415; 71045; 71260; 80053; 83605; 83735; 83880; 84703; 85025; 87040; 94640; 94760; 96361; 96374; J0456; J2930; J7620; Q9967

== ENCOUNTER 2024-11-17 15:39 | Outpatient (CLI) | payer BC | END 2024-11-17 15:40 | disposition home or self-care (01) | LOC: SCSRAD 15:39 | PROVIDERS: ATTEND Internal Medicine Rheumatology | DX: M46.1 Sacroiliitis, not elsewhere classified (principal) | CPT/HCPCS: 72202 ==